=== PATIENT | male | born 1960 | race Caucasian/White ===

== ENCOUNTER 2019-03-22 07:54 | Outpatient (CLI) | payer OTHER ==
[2019-03-22] MEDS ORDERED: LEVAQUIN750 MG PO (14:48)
== END 2019-03-22 08:06 | disposition home or self-care (01) ==
LOC: RAD 07:54
DX: K57.20 Diverticulitis of large intestine with perforation and abscess without bleeding (principal); N32.1 Vesicointestinal fistula

== ENCOUNTER 2019-03-22 12:14 | Inpatient (IN) | payer OTHER ==
[~2019-03-22] VITALS: Ht 154.9 cm; Wt 68.5 kg
[2019-03-22] MEDS ORDERED: LEVAQUIN750 MG PO (14:48)
== END 2019-04-02 19:42 | disposition home or self-care (01) | DRG 330 ==
LOC: SURG 03-30 07:04 → O/R 03-30 07:04 → SURH 03-30 10:46 → SURG 03-30 16:42
PROVIDERS: ADMIT Colon & Rectal Surgery
PROC: 0WUF47Z Supplement Abdominal Wall with Autologous Tissue Substitute, Percutaneous Endoscopic Approach (ICD-10-PCS; 2019-03-30)
PROC: 0TQB4ZZ Repair Bladder, Percutaneous Endoscopic Approach (ICD-10-PCS; 2019-03-30)
PROC: 0DJD8ZZ Inspection of Lower Intestinal Tract, Via Natural or Artificial Opening Endoscopic (ICD-10-PCS; 2019-03-30)
PROC: 0DTN4ZZ Resection of Sigmoid Colon, Percutaneous Endoscopic Approach (ICD-10-PCS; principal; 2019-03-30 12:45)
DX: K57.20 Diverticulitis of large intestine with perforation and abscess without bleeding (principal); N32.1 Vesicointestinal fistula; N99.72 Accidental puncture and laceration of a genitourinary system organ or structure during other procedure; R73.01 Impaired fasting glucose; D64.89 Other specified anemias

== ENCOUNTER 2021-06-08 08:00 | Day surgery (SDC) | payer OTHER ==
[~2021-06-08 08:00] MED LIST: LEVAQUIN750 MG PO
== END 2021-06-08 14:50 | disposition home or self-care (01) ==
LOC: AMB-ENDOS 08:00
PROVIDERS: ATTEND Colon & Rectal Surgery
DX: K57.32 Diverticulitis of large intestine without perforation or abscess without bleeding (principal); K64.0 First degree hemorrhoids